=== PATIENT | male | born 1950 | race Caucasian/White ===

== ENCOUNTER 2025-06-26 18:03 | Emergency (ER) | payer MEDICARE ==
[~2025-06-26] VITALS: Ht 177.8 cm; Wt 132.6 kg
[~2025-06-26 18:03] MED LIST: CYCLOBENZAPRINE5 MG PO; FLOMAX0.4 MG PO; LIPITOR10 MG PO; PLAVIX75 MG PO; PREDNISONE10 MG PO; VIT D PO
[2025-06-26 18:10] VITALS: PULSE 93; RESP 20; TEMP 98.1; O2SAT 95
== END 2025-06-26 18:53 | disposition home or self-care (01) ==
LOC: FSED 18:23
DX: R09.89 Other specified symptoms and signs involving the circulatory and respiratory systems (principal); B34.9 Viral infection, unspecified; E78.5 Hyperlipidemia, unspecified; Z11.52 Encounter for screening for COVID-19
CPT/HCPCS: 0223U; 87400; 99282